=== PATIENT | male | born 1960 | race Caucasian/White ===

== ENCOUNTER 2016-10-29 21:29 | Emergency (ER) | payer OTHER, MEDICAID ==
[~2016-10-29] VITALS: Ht 177.8 cm; Wt 98.9 kg
[~2016-10-29 21:29] MED LIST: ALBU1AER4 IN; ALBUAER3 IN; DIPH2.5T16 PO; DOXY100C2 PO; FAM20T PO; FLUT110A IN; IPRAAER6 IN; IPRIH INH; LEVA1NEB5 IN; LEVO500T3 PO; LORA-205 PO; LORATAB PO; NAP500T PO; NOR5T PO; OLOP0.15; OLOP1DRO2 OP; PRE5T PO; PRO625LQ GT; ROFL1TAB2 PO; SACC250C PO; TIOTCAP IN; [UNRECOGNIZED DRUG - CODE] HHN; [UNRECOGNIZED DRUG - CODE] PO; [UNRECOGNIZED DRUG - CODE] PO; [UNRECOGNIZED DRUG - CODE] VA
[2016-10-29 23:03] LABS: Basophils # (auto) 0 uL; Basophils % (auto) 0.1 % (0.0-2.0); DEFINITIVE VIEW TRANSMISSION; Eosinophils # (auto) 0.1 uL; Eosinophils % (auto) 0.4 % (0.0-7.0); Lymphocytes # (auto) 1.3 uL; Lymphocytes % (auto) 8.7 % (10.0-50.0); Mean Corpuscular Hemoglobin 29.7 pg (28.0-32.0); Mean Corpuscular Hgb Conc. 32.5 g/dL (32.0-36.0); Mean Corpuscular Volume 91.4 fL (80.0-100.0); Mean Platelet Volume 7.6 fL (7.4-10.4); Monocytes # (auto) 0.6 uL; Monocytes % (auto) 4.4 % (0.0-12.0); Neutrophils # (auto) 12.4 uL; Neutrophils % (auto) 86.4 % (37.0-80.0); Platelet Count (auto) 134 10^3/uL (140-450); SUSPECT VIEW TRANSMISSION; White Blood Cell 14.4 10^3/uL (4.4-10.8)
[2016-10-29 23:08] LABS: Red Cell Distribution Width 25.9 % (11.6-16.0)
[2016-10-29 23:25] LABS: Albumin 3.9 g/dL (3.4-5.0); BUN/Creatinine Ratio 14.8; Calcium 8.7 mg/dL (8.5-10.1); Potassium 4.1 mmol/L (3.5-5.1)
[2016-10-29 23:27] LABS: Bilirubin, Total 0.9 mg/dL (0.2-1.0); Total Protein 8.4 g/dL (6.4-8.2)
[2016-10-29 23:43] LABS: Anisocytosis Moderate; Platelet Estimate Decreased
[2016-10-29 23:44] LABS: Schistocytes FEW; Stomatocytes Moderate
[2016-10-29 23:49] LABS: INR 1.12 (0.9-1.15); Partial Thromboplastin Time 27.8 sec (22.64-33.71); Prothrombin Time 11.5 sec (9.37-12.3)
[2016-10-30] MEDS ORDERED: HYDROcodone-ACET 10/325MG TAB PO ONE (02:45)
[2016-10-30] MEDS ORDERED: IPRATROPIUM BROM 0.5 MG/2.5ML INH SOL NEB ONE (02:45)
[2016-10-30] MEDS ORDERED: ALBUTEROL SULF 2.5 MG/0.5ML(0.5%) NEB SOLN NEB ONE (02:45)
[2016-10-30] MEDS ORDERED: cefTRIAXone SOD 1,000 MG VL IM ONE (03:00)
[2016-10-30] MEDS ORDERED: diphenhdrAMINE HCL 50 MG/1 ML VL IM ONE (03:30)
[2016-10-30 03:57] VITALS: BP 127/68
== END 2016-10-30 04:01 | disposition home or self-care (01) ==
LOC: ER 21:40
DX: J06.9 Acute upper respiratory infection, unspecified (principal); R91.8 Other nonspecific abnormal finding of lung field; J45.909 Unspecified asthma, uncomplicated; J44.9 Chronic obstructive pulmonary disease, unspecified; E78.5 Hyperlipidemia, unspecified
CPT/HCPCS: 36415; 71010; 80053; 83735; 84484; 85025; 85049; 85610; 85730; 93005; 94640; 96372; 99285; J0696; J1200; J7030

== ENCOUNTER 2017-06-15 18:41 | Inpatient (IN) | payer OTHER, MEDICAID ==
[~2017-06-15] VITALS: Ht 177.8 cm; Wt 100.3 kg
[~2017-06-15 18:41] MED LIST changes: +HYDR-4663 PO; +LEVO500T21 PO; -LEVO500T3 PO; -NOR5T PO
[2017-06-15 19:09] LABS: Urine RBC None Seen /hpf (0 - 3)
[2017-06-15 19:19] LABS: Basophils # (auto) 0 uL; Basophils % (auto) 0.1 % (0.0-2.0); CONDITION Y; DEFINITIVE SEE PRINTOUT; Eosinophils # (auto) 0 uL; Eosinophils % (auto) 0.3 % (0.0-7.0); Hematocrit 27.6 % (41.0-53.0); Hemoglobin 9.3 g/dL (13.5-17.5); Lymphocytes # (auto) 1.5 uL; Mean Corpuscular Hemoglobin 31.1 pg (28.0-32.0); Mean Corpuscular Hgb Conc. 33.5 g/dL (32.0-36.0); Mean Platelet Volume 7.6 fL (7.4-10.4); Monocytes # (auto) 0.5 uL; Monocytes % (auto) 4.9 % (0.0-12.0); Neutrophils # (auto) 7.5 uL; Neutrophils % (auto) 78.7 % (37.0-80.0); Platelet Count (auto) 92 10^3/uL (140-450); White Blood Cell 9.5 10^3/uL (4.4-10.8)
[2017-06-15 19:34] LABS: Urine Bilirubin Negative (Negative); Urine Blood Negative /uL (Negative); Urine Color Yellow (Yellow); Urine Glucose Normal (Normal); Urine Ketone Negative (Negative); Urine Nitrite Negative (Negative); Urine Urobilinogen Normal (Negative)
[2017-06-15 19:39] LABS: Albumin 3.3 g/dL (3.4-5.0); Alkaline Phosphatase 143 U/L (45-117); Anion Gap 12 (5-15); Aspartate Aminotransferase 14 U/L (15-37); BUN/Creatinine Ratio 15.9; Bilirubin, Total 0.2 mg/dL (0.2-1.0); Blood Urea Nitrogen 14 mg/dL (7-18); Calcium 7.6 mg/dL (8.5-10.1); Carbon Dioxide 25 mmol/L (21-32); Chloride 103 mmol/L (98-107); GFR African American 114 mL/min; GFR Non-African American 95 mL/min; Glucose 115 mg/dL (74-106); Magnesium 2.4 mg/dL (1.6-2.6); Potassium 3.4 mmol/L (3.5-5.1); Sodium 140 mmol/L (136-145); Total Protein 7.1 g/dL (6.4-8.2)
[2017-06-15 20:03] LABS: Stomatocytes Few
[2017-06-15 20:04] LABS: Large Platelets FEW; Platelet Clumps FEW
[2017-06-15 20:05] LABS: Anisocytosis Moderate; Ovalocytes FEW; Platelet Estimate Decrea
[2017-06-15] MEDS ORDERED: ONDANSETRON HCL 4 MG/2 ML VIAL IV ONE (23:15)
[2017-06-15] MEDS ORDERED: ASPirin 81 mg TAB PO ONE (23:15)
[2017-06-15] MEDS ORDERED: MORPHINE SULFATE 4 MG/ML SYRG IV ONE (23:15)
[2017-06-15] MEDS ORDERED: NITROGLYCERIN 0.4 MG SL TAB SL ONE (23:15)
[2017-06-16] MEDS ORDERED: POTASSIUM CHL 20 Meq TABLET PO ONE
[2017-06-16] MEDS ORDERED: MORPHINE SULF INJ 2 MG/ML SYRINGE 1ML IV PRN ×2
[2017-06-16] MEDS ORDERED: ONDANSETRON HCL 4 MG/2 ML VIAL IV PRN
[2017-06-16] MEDS ORDERED: LORazepam 0.5 MG TAB PO PRN
[2017-06-16] MEDS ORDERED: NITROGLYCERIN 0.4 MG SL TAB SL PRN
[2017-06-16] MEDS ORDERED: ACETAMINOPHEN 500 MG TAB PO PRN
[2017-06-16] MEDS: ALBUTEROL SULF 2.5 MG/0.5ML(0.5%) NEB SOLN NEB PRN ×3 (00:33→10:08)
[2017-06-16] MEDS: IPRATROPIUM BROM 0.5 MG/2.5ML INH SOL NEB PRN ×2 (00:33→06:06)
[2017-06-16 02:50] LABS: Cholesterol 185 mg/dL (< 200); HDL Cholesterol 19 mg/dL (40-59); LDL Cholesterol 134 mg/dL (< 100); Triglycerides 358 mg/dL (< 150)
[2017-06-16 04:15] VITALS: BP 144/85
[2017-06-16 04:17] VITALS: BP 139/80
[2017-06-16 05:00] VITALS: BP 144/85
[2017-06-16] MEDS: HYDROcodone-ACET 5/325MG TAB PO PRN ×2 (05:27→14:45)
[2017-06-16 07:58] LABS: Basophils # (auto) 0 uL; Basophils % (auto) 0.1 % (0.0-2.0); CONDITION Y; DEFINITIVE SEE PRINTOUT; Eosinophils # (auto) 0.1 uL; Eosinophils % (auto) 1.5 % (0.0-7.0); Hematocrit 26.7 % (41.0-53.0); Hemoglobin 8.9 g/dL (13.5-17.5); Lymphocytes # (auto) 1.8 uL; Lymphocytes % (auto) 22.4 % (10.0-50.0); Mean Corpuscular Hgb Conc. 33.3 g/dL (32.0-36.0); Mean Corpuscular Volume 93.1 fL (80.0-100.0); Mean Platelet Volume 7.6 fL (7.4-10.4); Monocytes # (auto) 0.3 uL; Monocytes % (auto) 4.2 % (0.0-12.0); Neutrophils # (auto) 5.7 uL; Neutrophils % (auto) 71.8 % (37.0-80.0); Platelet Count (auto) 83 10^3/uL (140-450); White Blood Cell 7.9 10^3/uL (4.4-10.8)
[2017-06-16 08:00] LABS: Red Cell Distribution Width 20.1 % (11.6-16.0)
[2017-06-16 08:57] VITALS: BP 127/68
[2017-06-16 10:28] LABS: Anisocytosis Slight; Large Platelets FEW; Platelet Estimate Decreased; Stomatocytes Few
[2017-06-16] MEDS ORDERED: IPRAAER6 IN (11:26)
[2017-06-16] MEDS ORDERED: ALBU1AER4 IN (11:30)
[2017-06-16] MEDS ORDERED: IPRIH INH (11:30)
[2017-06-16] MEDS ORDERED: OLOP1DRO2 OP (11:30)
[2017-06-16] MEDS ORDERED: GABA-339 PO (11:30)
[2017-06-16] MEDS ORDERED: ROFL1TAB2 PO (11:37)
[2017-06-16] MEDS ORDERED: CLOT1CRE13 TOP (11:37)
[2017-06-16] MEDS ORDERED: LEVA1NEB5 NEB (11:37)
[2017-06-16] MEDS ORDERED: LORA1TAB12 PO (11:37)
[2017-06-16] MEDS ORDERED: TIOTCAP PO (11:37)
[2017-06-16] MEDS ORDERED: MEPE50TA2 PO (11:37)
[2017-06-16] MEDS ORDERED: ALBU0.084 NEB (11:37)
[2017-06-16 13:00] VITALS: BP 151/75
[2017-06-16] MEDS ORDERED: ATOR20TA50 PO (13:49)
[2017-06-16] MEDS ORDERED: ONDA8TAB6 PO (15:07)
[2017-06-16] MEDS ORDERED: PRO10T PO (15:07)
[2017-06-16] MEDS ORDERED: NAPR-476 PO (15:07)
[2017-06-16] MEDS ORDERED: LORA1CAP PO (15:07)
[2017-06-16] MEDS ORDERED: BACL10TA PO (15:07)
[2017-06-16] MEDS ORDERED: OXY5T PO (15:07)
[2017-06-16] MEDS ORDERED: LEVA1.2512 PO (15:07)
[2017-06-16] MEDS ORDERED: LOR05T PO (15:07)
[2017-06-16] MEDS ORDERED: HYDR-4663 PO (15:07)
[2017-06-16] MEDS ORDERED: ATORVASTATIN 20 MG TAB PO SCH (22:00)
== END 2017-06-16 15:50 | disposition home health service (06) | DRG 181 ==
LOC: ER 18:43 → TELE 18:44 → TELE-WESTW 06-16 04:00
PROVIDERS: ADMIT Nurse Practitioner Family; ATTEND Internal Medicine
DX: C34.92 Malignant neoplasm of unspecified part of left bronchus or lung (principal); K52.1 Toxic gastroenteritis and colitis; I11.0 Hypertensive heart disease with heart failure; I50.9 Heart failure, unspecified; E66.01 Morbid (severe) obesity due to excess calories; E78.1 Pure hyperglyceridemia; F17.210 Nicotine dependence, cigarettes, uncomplicated; H04.123 Dry eye syndrome of bilateral lacrimal glands; K21.9 Gastro-esophageal reflux disease without esophagitis; G62.9 Polyneuropathy, unspecified; D64.9 Anemia, unspecified; J44.9 Chronic obstructive pulmonary disease, unspecified; E78.5 Hyperlipidemia, unspecified; T45.1X5A Adverse effect of antineoplastic and immunosuppressive drugs, initial encounter; Z68.31 Body mass index [BMI] 31.0-31.9, adult; Z88.6 Allergy status to analgesic agent; Z88.0 Allergy status to penicillin; Z79.899 Other long term (current) drug therapy; Z92.21 Personal history of antineoplastic chemotherapy; Z87.81 Personal history of (healed) traumatic fracture; Z82.49 Family history of ischemic heart disease and other diseases of the circulatory system; Y92.89 Other specified places as the place of occurrence of the external cause
CPT/HCPCS: 36415; 71020; 80053; 80061; 81001; 82550; 83735; 84484; 85025; 85652; 86141; 93005; 94640; 96374; 96375; J2405